=== PATIENT | female | born 1980 | race Caucasian/White ===

== ENCOUNTER → 2017-01-04 15:24 | Outpatient (CLI) | payer BC ==
[2015-03-02 14:50] VITALS: BMI 19.4
[~2017-01-04 15:24] MED LIST: ALDACTONE100 MG PO; ARMOUR THYROID60 M1 PO; LISINOPRIL2.5 MG PO; TECFIDERA; TRINESSA1 TAB PO
[2017-01-04 16:11] LABS: CREATININE - SERUM 0.7 mg/dL (0.6-1.3)
== END | disposition home or self-care (01) ==
LOC: D.MRI 15:15
PROVIDERS: Psychiatry & Neurology Neurology
DX: G35 Multiple sclerosis (principal); E03.8 Other specified hypothyroidism; G43.109 Migraine with aura, not intractable, without status migrainosus

== ENCOUNTER 2017-01-10 08:51 | Outpatient (CLI) | payer BC ==
[~2017-01-10] VITALS: Ht 167.6 cm; Wt 53.6 kg
[~2017-01-10 08:51] MED LIST changes: -TECFIDERA; +TECFIDERA PO
[2017-01-10] MEDS ORDERED: MONONESSA1 TAB PO (10:27)
[2017-01-10 10:38] VITALS: BP 140/86; Ht 167.6 cm; Wt 53.6 kg
--- NOTE | 2017-01-10 10:52 | NUR ---
1015-22 GAUGE IV STARTED IN RIGHT ARM X 1 STICK. FLUSHED WELL WITHOUT ANY DIFFICULTIES SECURED WITH TEGADERM 1020-SOLUMEDROL INFUSION STARTED VIA MEDPUMP WITH OUT ANY DIFFULTIES INFUSING WITHOUT ANY PROBLEMS. ON PUMP TO INFUSE OVER 3 HOURS. PT CALL LIGHT IS IN REACH. AND DENIES ANY NEEDS OR CONCERNS AT THIS TIME
--- NOTE | 2017-01-10 13:34 | NUR ---
1320-INFUSION COMPLETE PLANNED. PT IV REMAINS PATENT. IV FLUSHED WITH 10ML OF NS WITHOUT ANY DIFFICULTY. SALINE LOCKED IV AND COVERED WITH COBAN. PT DISCHARGED HOME IN STABLE CONDITON WITHOUT ANY NEEDS OR CONCERNS AND INSTRUCTED TO COME BACK TOMORROW FOR INFUSION WILL CONTINUE TO MONITOR
== END 2017-01-10 13:30 | disposition home or self-care (01) ==
LOC: D.OPS 08:51
DX: G35 Multiple sclerosis (principal)

== ENCOUNTER 2017-01-11 08:35 | Outpatient (CLI) | payer BC ==
[~2017-01-11] VITALS: Ht 172.7 cm; Wt 53.6 kg
[~2017-01-11 08:35] MED LIST changes: +MONONESSA1 TAB PO
[2017-01-11 09:14] VITALS: BP 134/80; Ht 172.7 cm; Wt 53.6 kg
== END 2017-01-11 12:25 | disposition home or self-care (01) ==
LOC: D.OPS 08:35
DX: G35 Multiple sclerosis (principal)

== ENCOUNTER 2017-01-12 08:35 | Outpatient (CLI) | payer BC ==
[~2017-01-12] VITALS: Ht 172.7 cm; Wt 53.6 kg
[2017-01-12 09:38] VITALS: BP 126/71; Ht 172.7 cm; Wt 53.6 kg
--- NOTE | 2017-01-12 09:48 | NUR ---
0850-FLUSHED RIGHT ARM IV WITH 10ML OF NS WITHOUT ANY DIFFIULTY. 1000MG OF SOLUMEDROL STARTED VIA MED PUMP. MED INFUSION WITHOUT ANY DIFFICULTY
--- NOTE | 2017-01-12 12:34 | NUR ---
1150-INFUSION COMPLETED PLANNED. IV SALINED LOCKED 1205-PT DISCHARGED HOME IN STABLE CONDITION WITHOUT ANY DIFFICULTIES. INSTRUCTED TO GO TO ER REGISTERATION ON SUNDAY PT STATES UNDERSTANDING
== END 2017-01-12 12:05 | disposition home or self-care (01) ==
LOC: D.OPS 08:35
DX: G35 Multiple sclerosis (principal)

== ENCOUNTER 2017-01-13 14:26 | Outpatient (CLI) | payer BC ==
[~2017-01-13] VITALS: Ht 172.7 cm; Wt 53.6 kg
[2017-01-13 15:00] VITALS: BP 114/74; Ht 172.7 cm; Wt 53.6 kg
--- NOTE | 2017-01-13 15:00 | NUR ---
TO ROOM 2216 FROM HOME.PT WITHOUT DISTRESS.ASSESSMENT PER FLOW SHEET.CALL LIGHT IN REACH
--- NOTE | 2017-01-13 17:10 | NUR ---
AT BEDSIDE.PT REMAINS WITHOUT DISTRESS.DENIES NEEDS.CALL LIGHT IN REACH
--- NOTE | 2017-01-13 18:47 | NUR ---
INFUSION COMPLETE.DISCHARGE INSTRUCTIONS.LEFT UNIT WITH FAMILY FOR TRANSPORT HOME.
== END 2017-01-13 18:48 | disposition home or self-care (01) ==
LOC: D.OPS 14:26 → D.MS 14:38 → D.OPS 18:48
DX: G35 Multiple sclerosis (principal)

== ENCOUNTER 2017-01-14 08:59 | Outpatient (CLI) | payer BC ==
[~2017-01-14] VITALS: Ht 172.7 cm; Wt 53.6 kg
[2017-01-14 09:17] VITALS: BP 149/85; Ht 172.7 cm; Wt 53.6 kg
--- NOTE | 2017-01-14 10:50 | NUR ---
IV INFUSING WITHOUT ADVERSE REACTIONS NOTED. WILL MONITOR.
--- NOTE | 2017-01-14 12:53 | NUR ---
ABT COMPLETED. IV DCD. DC ORDERS SIGNED.
== END 2017-01-14 12:55 | disposition home or self-care (01) ==
LOC: D.OPS 08:59 → D.M2 09:00 → D.OPS 12:55
DX: G35 Multiple sclerosis (principal)